=== PATIENT | female | born 1985 | race Caucasian/White ===

== ENCOUNTER → 2017-08-11 | Outpatient (CLI) | payer OTHER ==
[~2017-08-11] MED LIST: BCPILLS PO; BUPR-79; CLON1TAB3; FLUO20CA35 PO; GLYCOPYRROLATE; IBUP-1428; OXYC-106; XNX25 PO
--- NOTE | 2017-08-13 14:20 | POLYSOMNOGRAPH REPORT ---
CLINICAL DATA: 31-year-old female with excessive daytime sleepiness, unrefreshing sleep, fragmented sleep architecture, intermittent sleep arousals, and question cataplexy. The patient may have either idiopathic hypersomnia or narcolepsy. She was initially felt to need a PSG/MSLT to try do diagnose either narcolepsy or hypersomnia. However, her insurance company required a portable sleep study to determine if she has obstructive sleep apnea. On the evening of 08/11/2017,a home sleep apnea test was performed using a Yedda type 3 monitor. RECORDING RESULTS: Total recording time was 10 hours. The patient's monitoring time and estimated sleep time was 8.2 hours. RESPIRATORY DATA: There was no evidence of sleep apnea seen. The NEELAM was 0.2. There were 2 central apneic episodes recorded. The longest respiratory event was 11 seconds. OXIMETRY DATA: No significant hypoxemia was seen. Oxygen michel was 87%. Mean saturation was 96%. HEART RATE DATA: Heart rates ranged from 45-65 beats per minute. SNORING DATA: Snoring was recorded intermittently through the night. IMPRESSION: No evidence of clinically significant sleep apnea/hypopnea or nocturnal hypoxemia to explain this patient's symptoms. RECOMMENDATIONS: Since idiopathic hypersomnia and/or narcolepsy are still felt to be clinical considerations, a combined PSG/MSLT in the lab will be required. KASSANDRA
== END | disposition home or self-care (01) ==
LOC: C.NEUR 11:03
PROVIDERS: ATTEND Internal Medicine Pulmonary Disease
DX: G47.9 Sleep disorder, unspecified (principal); G47.19 Other hypersomnia; G47.8 Other sleep disorders